=== PATIENT | female | born 1970 | race Caucasian/White ===

== ENCOUNTER → 2017-11-02 | Outpatient (CLI) | payer OTHER ==
[~2017-11-02] MED LIST: CEFZIL500 MG PO; FLONASE NASAL S16 GM NS; LOVOXIL; MICROGESTIN FE1 TA1 PO; NAPROSYN375 MG PO; PHENERGAN 25 TA25 MG PO; PRIL40 PO; SYNTHROID0.088 MG/T PO; VICODIN 5/5001 UDTAB PO; ZYRTEC 10MG10 MG PO
== END ==
LOC: MC.RAD 11:20
DX: Z12.31 Encounter for screening mammogram for malignant neoplasm of breast (principal)

== ENCOUNTER 2018-01-06 08:15 | Outpatient (RCR) | payer OTHER | END 2018-02-09 | disposition home or self-care (01) | LOC: WSPT | DX: M76.31 Iliotibial band syndrome, right leg (principal); Z79.899 Other long term (current) drug therapy ==

== ENCOUNTER → 2019-01-20 | Outpatient (CLI) | payer BC | LOC: MC.RAD 11-17 08:15 | DX: Z12.31 Encounter for screening mammogram for malignant neoplasm of breast (principal); Z98.82 Breast implant status ==

== ENCOUNTER → 2019-03-29 | Outpatient (CLI) | payer BC | LOC: COL.RAD 09:01 | DX: R10.11 Right upper quadrant pain (principal) ==

== ENCOUNTER → 2020-04-30 | Outpatient (CLI) | payer BC ==
[2020-04-30 11:21] LABS: COLLECTION METHOD CLEAN CATCH
[2020-04-30 11:24] LABS: HEMOGLOBIN 14.4 g/dl (12.5-16.0); MEAN CELL VOLUME 93 fl (80.0-100.0); MEAN CORPUSCULAR HEMOGLOBIN 31 pg (27.0-31.0); MEAN CORPUSCULAR HGB CONC 34 g/dl (33.0-37.0); MEAN PLATELET VOLUME 9.5 fl (7.4-10.4); PLATELET COUNT 280 K/mm3 (130-400); RED BLOOD COUNT 4.63 M/mm3 (4.10-5.30); REDCELL DISTRIBUTION WIDTH-CV 12.4 % (11.5-14.5)
[2020-04-30 11:27] LABS: PH 7 (5-8); SQUAMOUS EPITHELIAL 0-2 /hpf; URINE APPEARANCE Clear; URINE BACTERIA None Seen /hpf; URINE BILIRUBIN Negative (NEGATIVE); URINE BLOOD 1+ (NEGATIVE); URINE COLOR Straw; URINE GLUCOSE Negative (NEGATIVE); URINE KETONE Negative (NEGATIVE); URINE LEUKOCYTE ESTERASE Negative (NEGATIVE); URINE NITRATE Negative (NEGATIVE); URINE PROTEIN(semi-quant) Negative (NEGATIVE); URINE RBC 0-2 /hpf; URINE UROBILINOGEN Negative (NEGATIVE); URINE WBC 0-2 /hpf
[2020-04-30 11:37] LABS: ALBUMIN 4.7 gm/dL (3.5-5.0); BILIRUBIN,TOTAL 0.8 mg/dL (0.0-1.0); CALCIUM 9.5 mg/dL (8.4-10.2); CREATININE, serum 0.67 (0.52-1.25); POTASSIUM 4.2 mmol/L (3.4-5.0); TOTAL PROTEIN 8.1 gm/dL (6.4-8.2)
== END ==
LOC: COL.RAD 10:54
PROVIDERS: Family Medicine
DX: I86.8 Varicose veins of other specified sites (principal)
CPT/HCPCS: Q9967

== ENCOUNTER → 2020-10-31 | Outpatient (CLI) | payer BC | LOC: COL.CARD 07:53 | DX: I47.1 Supraventricular tachycardia (principal) ==

== ENCOUNTER → 2020-11-20 | Outpatient (CLI) | payer BC | LOC: MC.RAD 10:03 | DX: Z12.31 Encounter for screening mammogram for malignant neoplasm of breast (principal) ==

== ENCOUNTER → 2021-12-13 | Outpatient (CLI) | payer BC | LOC: MC.RAD 14:08 | DX: Z12.31 Encounter for screening mammogram for malignant neoplasm of breast (principal) ==

== ENCOUNTER → 2024-01-21 | Outpatient (CLI) | payer BC | LOC: MC.RAD 07:03 | DX: Z12.31 Encounter for screening mammogram for malignant neoplasm of breast (principal) ==